=== PATIENT | female | born 1960 | race American Indian/Alaskan Native ===

== ENCOUNTER 2019-05-30 11:53 | Emergency (ER) | payer SELFPAY ==
--- NOTE | 2019-05-30 14:37 | Event Note ---
Date of service: 05/30/19 Face to Face: This is a 58-year-old female, sent to the ER by her primary care doctor for evaluation of essentially asymptomatic elevated blood pressure. The patient has no physical pain at this time. She specifically denies shortness of breath leg weakness and numbness. She endorses intermittent sensation of head spinning for months. This is painless. It is not acutely worsened today. She denies tinnitus, denies change in auditory acuity. She denies headache, neck pain, loss of vision, back pain, abdominal pain, extremity weakness, numbness. She denies DVT and pulmonary embolism risk factors. She reports her outpatient primary care doctor recently called in outpatient antihypertensive medications. She also endorses that her primary care doctor performed outpatient laboratory studies. On her exam, GCS of 15, NIH score of 0, walks with a steady gait, there is no past pointing, there is normal [id number], and there is negative pronator drift. EKG suggests left ventricular hypertrophy, otherwise unremarkable. Please reference the [employer] clinical policy on hypertension which is not acutely symptomatic or decompensated. The patient had declined blood work in the ER, which is a reasonable decision to make. We discussed weight loss, diet and lifestyle modification. The patient does not appear to have an emergent medical condition at this time, does not require further emergent diagnostics at this time. Vital Signs 05/30/19 05/30/19 05/30/19 12:15 12:30 12:36 Temperature 98.4 F Pulse Rate 86 84 Respiratory 21 20 Rate Blood Pressure 174/94 177/89 O2 Sat by Pulse 98 96 98 Oximetry 05/30/19 05/30/19 05/30/19 12:41 12:45 13:00 Temperature 98.4 F Pulse Rate 88 85 Respiratory 20 15 22 Rate Blood Pressure 167/96 174/93 O2 Sat by Pulse 98 96 94 Oximetry 05/30/19 05/30/19 05/30/19 13:15 13:30 13:49 Temperature Pulse Rate 79 85 77 Respiratory 20 21 26 H Rate Blood Pressure 166/85 180/86 166/85 O2 Sat by Pulse 96 94 98 Oximetry 05/30/19 05/30/19 05/30/19 14:00 14:15 15:21 Temperature Pulse Rate 84 77 Respiratory 24 19 Rate Blood Pressure 187/89 173/84 175/87 O2 Sat by Pulse 97 96 Oximetry Labs 05/30/19 Unknown Urine Bilirubin Neg Urine RBC (Auto) < 1.0 U Epithel Cells (Auto) < 1.0
--- NOTE | 2019-05-30 15:19 | Emergency Department Report ---
ED General Adult HPI - General Chief complaint: High BP Stated complaint: HTN Time Seen by Provider: 05/30/19 13:14 Source: EMS Mode of arrival: Stretcher Limitations: No Limitations - History of Present Illness Initial comments: 58 y/o AAF with past medical history of hypertension which was initially treated with diltiazem, lisinopril and hydralazine presented to emergency department complaining of dizziness and the tingling sensation. She was found to have a blood pressure 200 J level C at her physician's office today for pain and advised her to come to the emergency department for further evaluation and treatment options. She admits to noncompliance to her prescribed medication regimen that she was trying to natural intake various to correct her blood pressure she reports having the same sensations over the last 1-2 months which she tried to ignore thinking it would improve if she continue with the appropriate treatment arrival the symptoms became unbearable today so she went to see her primary care provider. Since her blood pressure improved after clonidine currently she is asymptomatic visit she was advised to come here for a checkup Severity scale (0 -10): 0 Improves with: none Worsens with: none Associated Symptoms: denies: denies other symptoms, chest pain, cough, fever/chills, loss of appetite, malaise, nausea/vomiting, rash, shortness of breath, syncope Treatments Prior to Arrival: none - Related Data Allergies Allergy/AdvReac Type Severity Reaction Status Date / Time No Known Allergies Allergy Unverified 05/30/19 12:36 ED Review of Systems ROS: Stated complaint: HTN Other details as noted in HPI Comment: All other systems reviewed and negative ED Past Medical Hx - Past Medical History Hx Hypertension: Yes - Social History Smoking Status: Never Smoker Substance Use Type: Alcohol ED Physical Exam - General Limitations: No Limitations General appearance: alert, in no apparent distress - Head Head exam: Present: atraumatic, normocephalic - Eye Eye exam: Present: normal appearance - ENT ENT exam: Present: mucous membranes moist - Neck Neck exam: Present: normal inspection - Respiratory Respiratory exam: Present: normal lung sounds bilaterally. Absent: respiratory distress - Cardiovascular Cardiovascular Exam: Present: regular rate, normal rhythm. Absent: systolic murmur, diastolic murmur, rubs, gallop - GI/Abdominal GI/Abdominal exam: Present: soft, normal bowel sounds - Extremities Exam Extremities exam: Present: normal inspection - Back Exam Back exam: Present: normal inspection, full ROM. Absent: CVA tenderness (R), CVA tenderness (L) - Neurological Exam Neurological exam: Present: alert, oriented X3, CN II-XII intact, normal gait. Absent: motor sensory deficit - Psychiatric Psychiatric exam: Present: normal affect, normal mood - Skin Skin exam: Present: warm, dry, intact, normal color. Absent: rash ED Course Vital Signs 05/30/19 05/30/19 12:36 12:41 Temperature 98.4 F 98.4 F Pulse Rate 84 Respiratory 20 20 Rate Blood Pressure 177/89 O2 Sat by Pulse 98 98 Oximetry ED Medical Decision Making - EKG Data EKG shows normal: sinus rhythm Rate: normal - EKG Data Interpretation: normal EKG - Medical Decision Making 58-year-old -[place]og[place] female with a known history of diabetes, hypertension, asthma uncompliant with a blood pressure medication presents to the ED with hypertension stage III which responded to clonidine tablet was given by her primary care provided. EKG is normal she has no neurological deficits is that she calls her baseline. She's had hypertension for several years. Last x- rays were were not obtained per [facility] hypertension policy guidelines. She is alert and oriented x 3, speaks in full sentences no acute acute distress and is at baseline Critical care attestation.: If time is entered above; I have spent that time in minutes in the direct care of this critically ill patient, excluding procedure time. ED Disposition Clinical Impression: HTN (hypertension) Disposition: DC-01 TO HOME OR SELFCARE Is pt being admited?: No Does the pt Need Aspirin: No Condition: Stable Instructions: Hypertension (ED), Chronic Hypertension (ED), DASH Eating Plan (ED) Additional Instructions: Be sure to go to the pharmacy and brick picker her diltiazem, hydralazine, lisinopril. Referrals: PRIMARY CARE, [Referring] - 2-3 Days (Please f/u with you PCP for further evaluation and [place] options. )
[2019-05-30 15:29] LABS: Bilirubin,Urine NEG (Negative); Blood,Urine NEG (Negative); Color,Urine Colorless (Yellow); RBC,Urine < 1.0 /HPF (0.0-6.0); Urobilinogen,Urine < 2.0 mg/dL (<2.0); WBC,Urine < 1.0 /HPF (0.0-6.0)
[2019-05-30 15:35] VITALS: BP 175/87
== END 2019-05-30 16:00 | disposition home or self-care (01) ==
LOC: ED 11:53
DX: I10 Essential (primary) hypertension (principal); E11.9 Type 2 diabetes mellitus without complications
CPT/HCPCS: 81001; 93005; 93010

== ENCOUNTER 2021-01-26 17:54 | Inpatient (IN) | payer OTHER ==
--- NOTE | 2021-01-26 19:40 | Event Note ---
ED Screening Note Date of service: 01/26/21 Time: 19:38 ED Screening Note: 60-year-old female presents to the ER today with complaints of diabetic symptoms. Patient states that for the past couple weeks she has been having increased thirst, urinary frequency and decreased appetite. And also recently started noticing some dysuria and cloudiness to the urine. She states that she went to an urgent care today and they checked her sugar and it was greater than 500 and recommended she come to the ER. Patient denies past medical history of diabetes. She reports some mild dizziness but otherwise denies any chest pain, shortness of breath, abdominal pain, nausea or vomiting. Fingerstick blood sugar here was greater than 600. Discussed that this pt is new onset DM, DKA r/o with Nurse Dinora @1935 at that she needs room as soon as possible. This initial assessment/diagnostic orders/clinical plan/treatment(s) is/are subject to change based on patients health status, clinical progression and re- assessment by fellow clinical providers in the ED. Further treatment and workup at subsequent clinical providers discretion. Patient/guardian urged not to elope from the ED as their condition may be serious if not clinically assessed and managed. Initial orders include: Labs
[2021-01-26 19:56] LABS: Hemoglobin 15.8 gm/dl (10.1-14.3); Mean Corpuscular HGB Conc 34 % (30-34); Mean Corpuscular Volume 95 fl (79-97); Platelet Count 285 K/mm3 (140-440); Red Blood Count 4.95 M/mm3 (3.65-5.03); Red Cell Distribution Width 13.3 % (13.2-15.2)
[2021-01-26 20:12] LABS: Albumin 4.4 g/dL (3.9-5); Calcium 10.6 mg/dL (8.4-10.2)
[2021-01-26 20:41] LABS: Band Neutrophils # (Manual) 0.1 K/mm3; Total Cells Counted 100
[2021-01-26 20:42] LABS: Large Platelets Few; Platelet Estimate Consistent w Auto; RBC Morphology Normal; Toxic Granulation 1+
[2021-01-26] MEDS ORDERED: SODIUM CHLORIDE 0.9% 1000 ML 1,000 ML IV ONE ×3 (21:15→21:16)
--- NOTE | 2021-01-26 21:20 | Emergency Department Report ---
ED General Adult HPI - General Chief complaint: Hyperglycemia Stated complaint: HIGH BLOOD SUGAR Time Seen by Provider: 01/26/21 21:05 Source: patient Mode of arrival: Ambulatory Limitations: No Limitations - History of Present Illness Initial comments: 60-year-old female, history of hypertension, presents to ED with elevated glucose. Patient reports 1 month history of excessive thirst and urination. Patient was seen at an urgent care today and told that her glucose was high, so she came to the ED. Patient denies any recent illness, fever, abdominal pain, vomiting or diarrhea. Patient states she has been drinking lots of Pedialyte due to her excessive thirst. Patient reports she has been fully vaccinated against COVID-19. Patient reports she has a PCP, however she has not seen them since prior to the pandemic. -: month(s) (1) Quality: other (Painless) Consistency: constant Improves with: none Worsens with: none Associated Symptoms: denies: chest pain, cough, nausea/vomiting, shortness of breath - Related Data Home Medications Medication Instructions Recorded Confirmed Last Taken Lisinopril/Hydrochlorothiazide 12.5 mg PO DAILY 01/27/21 01/27/21 01/26/21 [Zestoretic 10-12.5 mg Tablet] Allergies Allergy/AdvReac Type Severity Reaction Status Date / Time No Known Allergies Allergy Unverified 05/30/19 12:36 ED Review of Systems ROS: Stated complaint: HIGH BLOOD SUGAR Other details as noted in HPI Comment: All other systems reviewed and negative Constitutional: denies: chills, fever Respiratory: denies: cough, shortness of breath Cardiovascular: denies: chest pain Endocrine: increased thirst, increased urine, unexplained weight loss Gastrointestinal: denies: abdominal pain, nausea, vomiting, diarrhea ED Past Medical Hx - Past Medical History Previous Medical History?: Yes Hx Hypertension: Yes - Social History Smoking Status: Never Smoker Substance Use Type: Alcohol - Medications Home Medications: Home Medications Medication Instructions Recorded Confirmed Last Taken Type Lisinopril/Hydrochlorothiazide 12.5 mg PO DAILY 01/27/21 01/27/21 01/26/21 History [Zestoretic 10-12.5 mg Tablet] ED Physical Exam - General Limitations: No Limitations General appearance: alert, in no apparent distress - Head Head exam: Present: atraumatic, normocephalic - Eye Eye exam: Present: normal appearance, EOMI - ENT ENT exam: Present: mucous membranes moist - Neck Neck exam: Present: normal inspection - Respiratory Respiratory exam: Present: normal lung sounds bilaterally. Absent: respiratory distress - Cardiovascular Cardiovascular Exam: Present: regular rate, normal rhythm - GI/Abdominal GI/Abdominal exam: Present: soft. Absent: distended, tenderness - Extremities Exam Extremities exam: Present: normal inspection - Neurological Exam Neurological exam: Present: alert, oriented X3, CN II-XII intact. Absent: motor sensory deficit - Psychiatric Psychiatric exam: Present: normal affect, normal mood - Skin Skin exam: Present: warm, dry, intact, normal color ED Course Vital Signs 01/26/21 01/26/21 01/26/21 18:12 20:46 21:00 Temperature 98.1 F Pulse Rate 104 H 96 H 88 Pulse Rate [ From Monitor] Respiratory 12 Rate Blood Pressure 174/85 167/73 167/73 O2 Sat by Pulse 100 100 100 Oximetry 01/26/21 01/26/21 01/26/21 21:16 21:30 21:46 Temperature Pulse Rate 96 H 90 91 H Pulse Rate [ From Monitor] Respiratory Rate Blood Pressure 170/88 123/59 130/58 O2 Sat by Pulse 100 100 99 Oximetry 01/26/21 01/26/21 01/26/21 22:00 22:16 22:30 Temperature Pulse Rate 91 H 87 82 Pulse Rate [ From Monitor] Respiratory Rate Blood Pressure 170/88 150/55 120/59 O2 Sat by Pulse 100 100 100 Oximetry 01/26/21 01/26/21 01/26/21 22:46 23:00 23:15 Temperature 98.3 F Pulse Rate 80 80 Pulse Rate [ From Monitor] Respiratory Rate Blood Pressure 138/61 135/59 O2 Sat by Pulse 99 99 Oximetry 01/26/21 01/26/21 01/26/21 23:16 23:46 23:56 Temperature Pulse Rate 87 79 82 Pulse Rate [ From Monitor] Respiratory Rate Blood Pressure 143/64 121/48 120/54 O2 Sat by Pulse 99 99 100 Oximetry 01/27/21 00:00 Temperature Pulse Rate 83 Pulse Rate [ 83 From Monitor] Respiratory 19 Rate Blood Pressure 121/48 O2 Sat by Pulse 100 Oximetry ED Medical Decision Making - Lab Data Result diagrams: 01/26/21 19:37 01/27/21 00:18 - Medical Decision Making 60-year-old female with new onset diabetes and DKA. Glucose is 135, sodium 119, bicarb is 15 with anion gap of 38. IV fluids and insulin drip ordered. Patient will be admitted to hospitalist, Dr. Kuo, for further management. - Differential Diagnosis Hyperglycemia, DKA Critical Care Time: Yes Critical care time in (mins) excluding proc time.: 35 Critical care attestation.: If time is entered above; I have spent that time in minutes in the direct care of this critically ill patient, excluding procedure time. Critical Care Time: 35 min ED Disposition Clinical Impression: Diabetic ketoacidosis Disposition: OP ADMIT IP TO THIS HOSP Is pt being admited?: Yes Condition: Stable Time of Disposition: 21:20
[2021-01-26 21:56] LABS: Calcium 10.1 mg/dL (8.4-10.2)
[2021-01-26] MEDS ORDERED: INSULIN REGULAR, HUMAN 100 UNITS in SODIUM CHLORIDE 0.9% 99 ML IV SCH ×2 (22:00→23:00)
[2021-01-26] MEDS ORDERED: DEXTROSE 50% IN WATER (25GM) 50 ML SYRINGE IV PRN (22:22)
[2021-01-26 22:31] LABS: Bacteria,Urine 1+ /HPF (Negative); Bilirubin,Urine NEG (Negative); Blood,Urine LG (Negative); Color,Urine Yellow (Yellow); Mucus,Urine FEW /HPF; Urobilinogen,Urine < 2.0 mg/dL (<2.0)
--- NOTE | 2021-01-26 22:31 | History and Physical Report ---
History of Present Illness Date of examination: 01/26/21 Date of admission: 01/26/21 21:53 Chief complaint: Elevated blood Glucose History of present illness: 60-year-old -[place] female with known history of hypertension presenting to the emergency room today for evaluation of elevated blood glucose. Patient states she has been having excessive thirst and also excessive urination lately and therefore decided to be evaluated at an urgent care facility. Blood sugar was said to be quite high and therefore referred to the emergency room for further evaluation. Patient admits that she has been drinking a lot of soda and other fluids which contains sugar. She denies any fever or chills, no chest pain or shortness of breath, no nausea or vomiting, no abdominal pain, no hematuria or dysuria. She has a primary care physician but that she has not followed up lately due to the pandemic. Work-up in the emergency room today reveals elevated blood glucose in the 700s and elevated anion gap. Patient was found to be in DKA. She has been admitted for new onset diabetes mellitus and DKA. Patient subsequently started on insulin drip and admitted to the intensive care unit. Past History Past Medical History: hypertension Past Surgical History: No surgical history Social history: alcohol abuse (Drinks alcohol occasionally) Family history: diabetes (In aunts) Medications and Allergies Allergies Allergy/AdvReac Type Severity Reaction Status Date / Time No Known Allergies Allergy Unverified 05/30/19 12:36 Active Meds: Active Medications Dextrose (Dextrose 50% In Water (25gm) 50 Ml Syringe) 0 ml IV Q30MIN PRN; Protocol PRN Reason: Hypoglycemia Heparin Sodium (Porcine) (Heparin 5,000 Unit/1 Ml Vial) 5,000 unit SUB-Q Q8HR NELLIE Insulin Human Regular 100 (units/ Sodium Chloride) 100 mls @ 1 mls/hr IV TITR NELLIE; Protocol Last Admin: 01/26/21 22:16 Dose: 8 units/hr, 8 mls/hr Documented by: Potassium Chloride/Dextrose/Sod Cl (D5w/0.45% Nacl/Kcl 20 Meq) 20 meq in 1,000 mls @ 125 mls/hr IV DIRECT NELLIE Insulin Human Regular 100 (units/ Sodium Chloride) 100 mls @ 1 mls/hr IV TITR NELLIE; Protocol Sodium Chloride (Sodium Chloride 0.9% 10 Ml Flush Syringe) 10 ml IV BID NELLIE Sodium Chloride (Sodium Chloride 0.9% 10 Ml Flush Syringe) 10 ml IV PRN PRN PRN Reason: LINE FLUSH Review of Systems Constitutional: no fever, no chills Ears, nose, mouth and throat: no nasal congestion, no sore throat Cardiovascular: no chest pain, no palpitations Respiratory: no cough, no shortness of breath Gastrointestinal: no abdominal pain, no nausea, no vomiting, no diarrhea Genitourinary Female: no flank pain, no dysuria, no hematuria Musculoskeletal: no neck pain, no low back pain Integumentary: no rash, no pruritis Neurological: no headaches, no confusion Psychiatric: no anxiety, no depression Endocrine: excessive thirst, polydipsia, polyuria, no polyphagia, no nocturia Exam - Constitutional Vitals: Temp Pulse Resp BP Pulse Ox 98.1 F 96 H 12 170/88 100 01/26/21 18:12 01/26/21 21:16 01/26/21 18:12 01/26/21 21:16 01/26/21 21:16 General appearance: Present: no acute distress, well-nourished - EENT Eyes: Present: PERRL, EOM intact. Absent: scleral icterus ENT: hearing intact, clear oral mucosa, dentition normal - Neck Neck: Present: supple, normal ROM - Respiratory Respiratory effort: normal Respiratory: bilateral: CTA - Cardiovascular Rhythm: regular Heart Sounds: Present: S1 & S2. Absent: gallop, systolic murmur, diastolic murmur, rub, click - Extremities Extremities: no ischemia, pulses intact, No edema, normal temperature, Full ROM Peripheral Pulses: within normal limits - Abdominal General gastrointestinal: Present: soft, non-tender, non-distended, normal bowel sounds. Absent: mass - Integumentary Integumentary: Present: clear, warm, dry, normal turgor. Absent: rash - Musculoskeletal Musculoskeletal: strength equal bilaterally - Psychiatric Psychiatric: appropriate mood/affect, intact judgment & insight, memory intact, cooperative - Neurologic Neurologic: CNII-XII intact, no focal deficits, moves all extremities Results - Labs CBC & Chem 7: 01/26/21 19:37 01/26/21 21:22 Labs: Abnormal lab results 01/26/21 01/26/21 01/26/21 Range/Units 18:12 19:37 19:37 Hgb 15.8 H (10.1-14.3) gm/dl Hct 47.0 H (30.3-42.9) % Lymphocytes % (Manual) 37.0 H (13.4-35.0) % Monocytes % (Manual) 15.0 H (0.0-7.3) % Monocytes # (Manual) 1.1 H (0.0-0.8) K/mm3 Sodium 119 L* (137-145) mmol/L Potassium (3.6-5.0) mmol/L Chloride 71.1 L (98-107) mmol/L Carbon Dioxide 15 L (22-30) mmol/L BUN 25 H (7-17) mg/dL Creatinine 1.4 H (0.6-1.2) mg/dL Glucose 735 H* (65-100) mg/dL POC Glucose > 600 H (70-105) mg/dL Calcium 10.6 H (8.4-10.2) mg/dL Phosphorus (2.5-4.5) mg/dL Total Protein 8.3 H (6.3-8.2) g/dL 01/26/21 Range/Units 21:22 Hgb (10.1-14.3) gm/dl Hct (30.3-42.9) % Lymphocytes % (Manual) (13.4-35.0) % Monocytes % (Manual) (0.0-7.3) % Monocytes # (Manual) (0.0-0.8) K/mm3 Sodium 120 L (137-145) mmol/L Potassium 5.1 H (3.6-5.0) mmol/L Chloride 72.8 L (98-107) mmol/L Carbon Dioxide 14 L (22-30) mmol/L BUN 24 H (7-17) mg/dL Creatinine 1.4 H (0.6-1.2) mg/dL Glucose 748 H* (65-100) mg/dL POC Glucose (70-105) mg/dL Calcium (8.4-10.2) mg/dL Phosphorus 4.90 H (2.5-4.5) mg/dL Total Protein (6.3-8.2) g/dL Assessment and Plan - Patient Problems (1) Diabetic ketoacidosis Current Visit: Yes Status: Acute Plan to address problem: Patient placed on insulin drip and IV fluid Will monitor blood glucose closely. Will check hemoglobin A1c and schedule diabeteic education. Consult placed to intesivist. (2) DVT prophylaxis Current Visit: Yes Status: Acute Plan to address problem: Will place for subqutaneous heparin (3) Full code status Current Visit: Yes Status: Acute Plan to address problem: Full Code.
[2021-01-26 22:36] LABS: WBC,Urine > 182.0 /HPF (0.0-6.0)
[2021-01-27] MEDS: SODIUM CHLORIDE 0.9% 1000 ML 1,000 ML IV SCH
[2021-01-27 01:40] LABS: Calcium 9.4 mg/dL (8.4-10.2)
[2021-01-27] MEDS: D5W/0.45% NACL/KCL 20 MEQ 20 MEQ/1,000 ML BAG IV SCH ×2 (03:51→13:24)
[2021-01-27] MEDS: HEPARIN 5,000 UNIT/1 ML VIAL SUB-Q SCH ×3 (05:13→22:11)
[2021-01-27 06:07] LABS: BUN/Creatinine Ratio 19; Blood Urea Nitrogen 19 mg/dL (7-17); Calcium 9.8 mg/dL (8.4-10.2); Hemolysis Index 9
--- NOTE | 2021-01-27 08:42 | Progress Note ---
Assessment and Plan DKA -Patient was admitted to ICU with DKA protocol -Placed on insulin drip and monitor blood glucose every hour -We will insulin drip as anion gap is closed -we will place on consistent carb diet, sliding scale insulin and long-acting in sulin -will adjust insulin dose as needed for better blood glycemic control hyponatremia, due to hyperglycemia, improved continue IV fluid Hyperkalemia, resolved, Hypokalemia, replete as needed ADAMS due to vasomotor nephropathy -Resolved with IV fluid diabetes mellitus type 2 uncontrolled, need to consult -A1c 17.0, provide diabetic education, SSI long-acting insulin and consistent carb diet UTI, POA -Placed on IV fluid and antibiotics -Follow culture DVT prophylaxis, Lovenox Brief history: 60-year-old -[place] female with known history of hypertension presented to the emergency room for evaluation of elevated blood glucose, excessive thirst and also excessive urination lately. Work-up in the emergency room revealed UTI, elevated blood glucose in the 700s and elevated anion gap. Patient subsequently started on insulin drip [facility] onset diabetes mellitus, UTI and DKA.. 01/27/21; continue IV fluid, IV antibiotics. Stop insulin drip transition to subcu insulin. A1c 17.0. Start on consistent carb diet. Transfer to telemetry. Discussed plan of care at the bedside with patient and with her . Subjective Date of service: 01/27/21 Interval history: Patient seen and examined. Medical records and medication list reviewed. No acute event overnight noted by the RN. Patient denies any chest pain or difficulty breathing. Blood glucose improved, patient wants to eat Denies any nausea and vomiting Discussed plan of care at bedside with patient. Objective - Exam Narrative Exam: GENERAL: well-developed and well-nourished female lying on bed appeared to be in no discomfort. HEENT: Normocephalic. Atraumatic. No conjunctival congestion or icterus. Pa tient has moist mucous membranes. NECK: Supple. Trachea midline. CHEST/LUNGS: Clear to auscultated bilaterally, breathing nonlabored. No wheezes crackles or rhonchi. HEART/CARDIOVASCULAR: Regular in rate and rhythm. S1 and S2 positive. ABDOMEN: Abdomen is soft, nontender. Patient has normal bowel sounds. SKIN: There is no rash. Warm and dry. NEURO: No focal motor deficit. Follows command. MUSCULOSKELETAL: No joint effusion or tenderness. EXTRIMITY: No edema, no cyanosis or clubbing. PSYCH: Cooperative. - Constitutional Vitals: Vital Signs - 12hr 01/26/21 01/26/21 01/26/21 20:46 21:00 21:16 Temperature Pulse Rate 96 H 88 96 H Pulse Rate [ From Monitor] Respiratory Rate Blood Pressure 167/73 167/73 170/88 O2 Sat by Pulse 100 100 100 Oximetry 01/26/21 01/26/21 01/26/21 21:30 21:46 22:00 Temperature Pulse Rate 90 91 H 91 H Pulse Rate [ From Monitor] Respiratory Rate Blood Pressure 123/59 130/58 170/88 O2 Sat by Pulse 100 99 100 Oximetry 01/26/21 01/26/21 01/26/21 22:16 22:30 22:46 Temperature Pulse Rate 87 82 80 Pulse Rate [ From Monitor] Respiratory Rate Blood Pressure 150/55 120/59 138/61 O2 Sat by Pulse 100 100 99 Oximetry 01/26/21 01/26/21 01/26/21 23:00 23:15 23:16 Temperature 98.3 F Pulse Rate 80 87 Pulse Rate [ From Monitor] Respiratory Rate Blood Pressure 135/59 143/64 O2 Sat by Pulse 99 99 Oximetry 01/26/21 01/26/21 01/27/21 23:46 23:56 00:00 Temperature Pulse Rate 79 82 83 Pulse Rate [ 83 From Monitor] Respiratory 19 Rate Blood Pressure 121/48 120/54 121/48 O2 Sat by Pulse 99 100 100 Oximetry 01/27/21 01/27/21 01/27/21 02:01 02:10 02:24 Temperature Pulse Rate 79 81 143 H Pulse Rate [ From Monitor] Respiratory 17 18 Rate Blood Pressure 109/47 109/47 120/54 O2 Sat by Pulse 99 99 Oximetry 01/27/21 01/27/21 01/27/21 02:30 02:40 02:50 Temperature Pulse Rate 80 83 85 Pulse Rate [ From Monitor] Respiratory 10 L 17 21 Rate Blood Pressure 109/47 109/47 O2 Sat by Pulse 98 98 98 Oximetry 01/27/21 01/27/21 01/27/21 03:00 03:10 03:20 Temperature Pulse Rate 86 82 82 Pulse Rate [ From Monitor] Respiratory 16 15 10 L Rate Blood Pressure 117/56 117/56 117/56 O2 Sat by Pulse 97 98 96 Oximetry 01/27/21 01/27/21 01/27/21 03:30 03:40 03:50 Temperature Pulse Rate 78 82 80 Pulse Rate [ From Monitor] Respiratory 20 16 16 Rate Blood Pressure 117/56 117/56 117/56 O2 Sat by Pulse 97 97 98 Oximetry 01/27/21 01/27/21 01/27/21 04:00 04:10 04:20 Temperature 98.5 F Pulse Rate 83 85 85 Pulse Rate [ 83 From Monitor] Respiratory 18 20 12 Rate Blood Pressure 112/62 112/62 112/62 O2 Sat by Pulse 97 97 99 Oximetry 01/27/21 01/27/21 01/27/21 04:30 04:40 04:50 Temperature Pulse Rate 79 78 80 Pulse Rate [ From Monitor] Respiratory 20 17 15 Rate Blood Pressure 112/62 112/62 112/62 O2 Sat by Pulse 97 97 99 Oximetry 01/27/21 01/27/21 01/27/21 05:00 05:10 05:20 Temperature Pulse Rate 74 75 77 Pulse Rate [ From Monitor] Respiratory 17 18 15 Rate Blood Pressure 118/50 118/50 118/50 O2 Sat by Pulse 96 97 98 Oximetry 01/27/21 01/27/21 01/27/21 05:30 05:40 05:50 Temperature Pulse Rate 73 76 78 Pulse Rate [ From Monitor] Respiratory 17 17 14 Rate Blood Pressure 118/50 118/50 118/50 O2 Sat by Pulse 97 97 100 Oximetry 01/27/21 01/27/21 01/27/21 06:00 06:10 06:20 Temperature Pulse Rate 74 75 75 Pulse Rate [ From Monitor] Respiratory 15 16 17 Rate Blood Pressure 126/55 126/55 126/55 O2 Sat by Pulse 95 97 96 Oximetry 01/27/21 01/27/21 06:30 07:09 Temperature 98.0 F Pulse Rate 84 Pulse Rate [ From Monitor] Respiratory 14 Rate Blood Pressure 126/55 O2 Sat by Pulse 97 Oximetry - Labs CBC & Chem 7: 01/26/21 19:37 01/28/21 04:33 Labs: Abnormal lab results 01/26/21 01/26/21 01/26/21 Range/Units 18:12 19:37 19:37 Hgb 15.8 H (10.1-14.3) gm/dl Hct 47.0 H (30.3-42.9) % Lymphocytes % (Manual) 37.0 H (13.4-35.0) % Monocytes % (Manual) 15.0 H (0.0-7.3) % Monocytes # (Manual) 1.1 H (0.0-0.8) K/mm3 Sodium 119 L* (137-145) mmol/L Potassium (3.6-5.0) mmol/L Chloride 71.1 L (98-107) mmol/L Carbon Dioxide 15 L (22-30) mmol/L BUN 25 H (7-17) mg/dL Creatinine 1.4 H (0.6-1.2) mg/dL Glucose 735 H* (65-100) mg/dL POC Glucose > 600 H (70-105) mg/dL Hemoglobin A1c (4-6) % Calcium 10.6 H (8.4-10.2) mg/dL Phosphorus (2.5-4.5) mg/dL Total Protein 8.3 H (6.3-8.2) g/dL Urine WBC (Auto) (0.0-6.0) /HPF 01/26/21 01/26/21 01/26/21 Range/Units 21:22 21:49 23:32 Hgb (10.1-14.3) gm/dl Hct (30.3-42.9) % Lymphocytes % (Manual) (13.4-35.0) % Monocytes % (Manual) (0.0-7.3) % Monocytes # (Manual) (0.0-0.8) K/mm3 Sodium 120 L (137-145) mmol/L Potassium 5.1 H (3.6-5.0) mmol/L Chloride 72.8 L (98-107) mmol/L Carbon Dioxide 14 L (22-30) mmol/L BUN 24 H (7-17) mg/dL Creatinine 1.4 H (0.6-1.2) mg/dL Glucose 748 H* (65-100) mg/dL POC Glucose 585 H (70-105) mg/dL Hemoglobin A1c 17.0 H (4-6) % Calcium (8.4-10.2) mg/dL Phosphorus 4.90 H (2.5-4.5) mg/dL Total Protein (6.3-8.2) g/dL Urine WBC (Auto) (0.0-6.0) /HPF 01/26/21 01/27/21 01/27/21 Range/Units Unknown 00:18 03:40 Hgb (10.1-14.3) gm/dl Hct (30.3-42.9) % Lymphocytes % (Manual) (13.4-35.0) % Monocytes % (Manual) (0.0-7.3) % Monocytes # (Manual) (0.0-0.8) K/mm3 Sodium 130 L D (137-145) mmol/L Potassium (3.6-5.0) mmol/L Chloride 85.9 L (98-107) mmol/L Carbon Dioxide 21 L D (22-30) mmol/L BUN 21 H (7-17) mg/dL Creatinine (0.6-1.2) mg/dL Glucose 452 H (65-100) mg/dL POC Glucose 161 H (70-105) mg/dL Hemoglobin A1c (4-6) % Calcium (8.4-10.2) mg/dL Phosphorus (2.5-4.5) mg/dL Total Protein (6.3-8.2) g/dL Urine WBC (Auto) > 182.0 H (0.0-6.0) /HPF 01/27/21 01/27/21 01/27/21 Range/Units 04:50 04:57 05:49 Hgb (10.1-14.3) gm/dl Hct (30.3-42.9) % Lymphocytes % (Manual) (13.4-35.0) % Monocytes % (Manual) (0.0-7.3) % Monocytes # (Manual) (0.0-0.8) K/mm3 Sodium 135 L (137-145) mmol/L Potassium 3.2 L (3.6-5.0) mmol/L Chloride 93.0 L (98-107) mmol/L Carbon Dioxide (22-30) mmol/L BUN 19 H (7-17) mg/dL Creatinine (0.6-1.2) mg/dL Glucose 135 H (65-100) mg/dL POC Glucose 150 H 163 H (70-105) mg/dL Hemoglobin A1c (4-6) % Calcium (8.4-10.2) mg/dL Phosphorus (2.5-4.5) mg/dL Total Protein (6.3-8.2) g/dL Urine WBC (Auto) (0.0-6.0) /HPF 01/27/21 01/27/21 Range/Units 06:58 07:39 Hgb (10.1-14.3) gm/dl Hct (30.3-42.9) % Lymphocytes % (Manual) (13.4-35.0) % Monocytes % (Manual) (0.0-7.3) % Monocytes # (Manual) (0.0-0.8) K/mm3 Sodium (137-145) mmol/L Potassium (3.6-5.0) mmol/L Chloride (98-107) mmol/L Carbon Dioxide (22-30) mmol/L BUN (7-17) mg/dL Creatinine (0.6-1.2) mg/dL Glucose (65-100) mg/dL POC Glucose 224 H 188 H (70-105) mg/dL Hemoglobin A1c (4-6) % Calcium (8.4-10.2) mg/dL Phosphorus (2.5-4.5) mg/dL Total Protein (6.3-8.2) g/dL Urine WBC (Auto) (0.0-6.0) /HPF
[2021-01-27] MEDS ORDERED: cefTRIAXone/NS 1 GM/50 ML 1 GM/50 ML BAG IV SCH (09:00)
--- NOTE | 2021-01-27 11:29 | Consultation ---
History of Present Illness Consult date: 01/27/21 Requesting physician: JUDE JOHNSON Reason for consult: other (DKA) History of present illness: PULMONARY/CCM CONSULT NOTE (Full dictation # [id number]) Please see dictated notes for full details Past History Past Medical History: hypertension Past Surgical History: No surgical history Social history: alcohol abuse (Drinks alcohol occasionally) Family history: diabetes (In aunts) Medications and Allergies Allergies Allergy/AdvReac Type Severity Reaction Status Date / Time No Known Allergies Allergy Unverified 05/30/19 12:36 Home Medications Medication Instructions Recorded Confirmed Last Taken Type Lisinopril/Hydrochlorothiazide 12.5 mg PO DAILY 01/27/21 01/27/21 01/26/21 History [Zestoretic 10-12.5 mg Tablet] Active Meds: Active Medications Dextrose (Dextrose 50% In Water (25gm) 50 Ml Syringe) 0 ml IV Q30MIN PRN; Protocol PRN Reason: Hypoglycemia Heparin Sodium (Porcine) (Heparin 5,000 Unit/1 Ml Vial) 5,000 unit SUB-Q Q8HR NELLIE Last Admin: 01/27/21 05:13 Dose: 5,000 unit Documented by: Potassium Chloride/Dextrose/Sod Cl (D5w/0.45% Nacl/Kcl 20 Meq) 20 meq in 1,000 mls @ 125 mls/hr IV DIRECT NELLIE Last Admin: 01/27/21 03:51 Dose: 125 mls/hr Documented by: Insulin Human Regular 100 (units/ Sodium Chloride) 100 mls @ 1 mls/hr IV TITR NELLIE; Protocol Last Titration: 01/27/21 11:02 Dose: 3 units/hr, 3 mls/hr Documented by: Sodium Chloride (Nacl 0.9% 1000 Ml) 1,000 mls @ 150 mls/hr IV DIRECT NELLIE Last Infusion: 01/27/21 03:51 Dose: 0 mls/hr Documented by: Ceftriaxone Sodium (Rocephin/Ns 1 Gm/50 Ml) 1 gm in 50 mls @ 100 mls/hr IV Q12H NELLIE; Protocol Last Admin: 01/27/21 09:28 Dose: 100 mls/hr Documented by: Sodium Chloride (Sodium Chloride 0.9% 10 Ml Flush Syringe) 10 ml IV BID NELLIE Last Admin: 01/27/21 09:22 Dose: 10 ml Documented by: Sodium Chloride (Sodium Chloride 0.9% 10 Ml Flush Syringe) 10 ml IV PRN PRN PRN Reason: LINE FLUSH Physical Examination Vital signs: Vital Signs Temp Pulse Resp BP Pulse Ox 98.1 F 104 H 12 174/85 100 01/26/21 18:12 01/26/21 18:12 01/26/21 18:12 01/26/21 18:12 01/26/21 18:12 Results - Laboratory Findings CBC and BMP: 01/26/21 19:37 01/27/21 04:57 Abnormal lab findings: Abnormal Labs 01/26/21 01/26/21 01/26/21 18:12 19:37 19:37 Hgb 15.8 H Hct 47.0 H Lymphocytes % (Manual) 37.0 H Monocytes % (Manual) 15.0 H Monocytes # (Manual) 1.1 H Sodium 119 L* Potassium Chloride 71.1 L Carbon Dioxide 15 L BUN 25 H Creatinine 1.4 H Glucose 735 H* POC Glucose > 600 H Hemoglobin A1c Calcium 10.6 H Phosphorus Total Protein 8.3 H Urine WBC (Auto) 01/26/21 01/26/21 01/26/21 21:22 21:49 23:32 Hgb Hct Lymphocytes % (Manual) Monocytes % (Manual) Monocytes # (Manual) Sodium 120 L Potassium 5.1 H Chloride 72.8 L Carbon Dioxide 14 L BUN 24 H Creatinine 1.4 H Glucose 748 H* POC Glucose 585 H Hemoglobin A1c 17.0 H Calcium Phosphorus 4.90 H Total Protein Urine WBC (Auto) 01/26/21 01/27/21 01/27/21 Unknown 00:18 03:40 Hgb Hct Lymphocytes % (Manual) Monocytes % (Manual) Monocytes # (Manual) Sodium 130 L D Potassium Chloride 85.9 L Carbon Dioxide 21 L D BUN 21 H Creatinine Glucose 452 H POC Glucose 161 H Hemoglobin A1c Calcium Phosphorus Total Protein Urine WBC (Auto) > 182.0 H 01/27/21 01/27/21 01/27/21 04:50 04:57 05:49 Hgb Hct Lymphocytes % (Manual) Monocytes % (Manual) Monocytes # (Manual) Sodium 135 L Potassium 3.2 L Chloride 93.0 L Carbon Dioxide BUN 19 H Creatinine Glucose 135 H POC Glucose 150 H 163 H Hemoglobin A1c Calcium Phosphorus Total Protein Urine WBC (Auto) 01/27/21 01/27/21 01/27/21 06:58 07:39 09:08 Hgb Hct Lymphocytes % (Manual) Monocytes % (Manual) Monocytes # (Manual) Sodium Potassium Chloride Carbon Dioxide BUN Creatinine Glucose POC Glucose 224 H 188 H 193 H Hemoglobin A1c Calcium Phosphorus Total Protein Urine WBC (Auto) 01/27/21 10:08 Hgb Hct Lymphocytes % (Manual) Monocytes % (Manual) Monocytes # (Manual) Sodium Potassium Chloride Carbon Dioxide BUN Creatinine Glucose POC Glucose 167 H Hemoglobin A1c Calcium Phosphorus Total Protein Urine WBC (Auto)
[2021-01-27] MEDS ORDERED: POTASSIUM CHLORIDE ER 20 MEQ TAB PO ONE (13:00)
[2021-01-27] MEDS ORDERED: SODIUM CHLORIDE 0.9% 1000 ML 1,000 ML IV SCH (16:00)
[2021-01-27] MEDS: INSULIN NPH, HUMAN 100 UNIT/1 ML SUB-Q SCH (16:49)
[2021-01-27] MEDS: INSULIN REGULAR, HUMAN 100 UNITS/1 ML SUB-Q SCH ×2 (16:50→22:12)
[2021-01-27 17:03] LABS: Blood Urea Nitrogen 14 mg/dL (7-17); Calcium 9.6 mg/dL (8.4-10.2); Hemolysis Index 80
[2021-01-27 17:06] LABS: BUN/Creatinine Ratio 20
[2021-01-27] MEDS: FAMOTIDINE 20 MG TAB PO SCH (22:11)
[2021-01-27 22:55] LABS: BUN/Creatinine Ratio 14; Blood Urea Nitrogen 13 mg/dL (7-17); Calcium 9.3 mg/dL (8.4-10.2); Hemolysis Index 22
--- NOTE | 2021-01-28 02:05 | Consultation ---
DATE OF CONSULTATION: 01/27/2021 PULMONARY CRITICAL CARE CONSULT NOTE CONSULTING PHYSICIAN: Dr. Matthew Kuo. REASON FOR CONSULTATION: Diabetic ketoacidosis. CHIEF COMPLAINT AND HISTORY OF PRESENT ILLNESS: As follows: The patient is a now 60-year-old female with a past medical history significant mostly for hypertension and extensive family history of diabetes, but no history of personal diabetes, who came in complaining of 1 month off polydipsia, polyuria. She was seen at an urgent care at the day of presentation and told that her sugars were high. She denied any recent illness. She denied any open wounds or sores on her body. She denied any nausea, vomiting, diarrhea, or sick contacts. She did say that she had been doing a lot of drinking or Pedialyte. In the emergency room, she was evaluated. She is COVID vaccinated coincidentally. She was found to be in diabetic ketoacidosis, started on IV insulin drip, started on DKA protocol. An ICU admission was sought, requested and offered. When I stopped by to see her, she remained on IV insulin. I think she was going about 4 units per hour, feeling perhaps a little bit better. She denies any history of tobacco use or abuse whatsoever. This really is as much of the history of presentation as I have. PAST MEDICAL HISTORY: Hypertension. PAST SURGICAL HISTORY: Denies. MEDICATIONS: She was on at the time I stopped by to see her according to the medication administration record included the following: Rocephin 1 g IV daily, Pepcid 20 mg p.o. at bedtime, heparin 5000 units subQ q.8 hours. Insulin drip was going as I mentioned at 4 units per hour. ALLERGIES: No known drug allergies. DIET: Well built lady. Denies acute weight loss or gain in the preceding few weeks to months. FAMILY AND SOCIAL HISTORY: Lives in the community. Denies alcohol, tobacco or illicit drug use or abuse. She does have a history of diabetes, I believe she says her aunts and in the rest of the family. FAMILY HISTORY: Otherwise, noncontributory. REVIEW OF SYSTEMS: No loss of consciousness. No new onset seizures. No new onset focal weakness. Denies gross hematochezia or melena. Denies gross hematuria or dysuria. Denies hematemesis. Denies hemoptysis. Denies palpitations. Denies seizures. Denies heat or cold intolerance. Complete 13 system review of system was obtained. Pertinent positives and/or negatives as in body of history above, otherwise they are noncontributory. PHYSICAL EXAMINATION: VITAL SIGNS: At presentation, she was afebrile, temperature 98.1 degrees Fahrenheit with a pulse of 104, respiratory rate of 12, blood pressure 174/85, O2 sats 100%. Inspired oxygen concentration at that time was not recorded. When I stopped by to see her, her O2 sats were 98% and that was on room air. GENERAL: Middle-aged female. Normocephalic, atraumatic, resting in bed with normal respiratory effort at rest. HEAD, EYES, EARS, NOSE AND THROAT: Anicteric. No conjunctival erythema. Oropharynx was dry. Mallampati #2 oropharynx. NECK: No gross jugular venous distention, no thyromegaly. Grossly, there were no palpable lymph nodes in the supraclavicular or submandibular lymph node chains. LUNGS: Auscultation of both lung warner were unremarkable. Lungs were clear bilaterally with good bilateral air movement. HEART: Sounds 1 and 2 were heard. They were regular rate and rhythm at the time of my evaluation without overt rubs or murmurs. ABDOMEN: Soft, full, bowel sounds are positive, nontender, no palpable hepatosplenomegaly. EXTREMITIES: Without overt digital clubbing or cyanosis, no pedal edema. Pedal pulses are 2+ bilaterally. NEUROLOGIC: Pupils are equal, round, about 4 mm, reactive to light. Extraocular muscle movements were intact. She moves all 4 extremities spontaneously. SKIN: Normal turgor in the areas examined without overt cellulitis or rash. Please see the wound care nurses' notes for full description of her skin. PSYCHIATRIC: Mood was normal. Affect was appropriate. She had intact judgment and insight. LABORATORY DATA: From my review are as follows: Admission white cell count 7200, hemoglobin 15.8, hematocrit 47.0 and platelet count 285. No band forms on the manual differential. Serum sodium was 119 at presentation, potassium 4.7, chloride 71, bicarbonate 15, BUN 25, creatinine 1.4, glucose was 735, anion gap 38. Hemoglobin A1c has come back as 17.0. Liver function tests otherwise within normal limits. Urinalysis showed large leukocyte esterase and greater than 182 white cells per high power field. Her most recent gap is down to 19. No microbiology studies for my review. No radiologist studies. ASSESSMENT: 1. New onset diabetes. 2. Diabetic ketoacidosis. 3. History of hypertension. 4. Possible urinary tract infection. 5. Severe metabolic acidosis at presentation. 6. Pseudohyponatremia ____. 7. Acute kidney injury. PLAN: She is about to get another BMP. I do feel her gap should have closed and she will be transitioned of IV insulin. In the meantime, oxygen will be given as necessary to keep sats greater than or equal to 90%. Aspiration precautions will be maintained. I have tried to explain the pathophysiology of diabetes to her. She will get diabetic education. I have stressed the importance of maintaining her blood sugars and trying to work on bringing her A1c down. I told her to look for a number of about 7, preferably a little bit better. She should watch her symptoms at the same time. Continued tobacco abstinence has been advised. She is appropriately on GI prophylaxis and DVT prophylaxis. Flu and pneumonia vaccination will be addressed per protocol. Thank you very much for the consult. We will follow along and make further recommendations as picture progresses/becomes clearer. TID: [id number] RECEIPT: [id number] SREEDHAR/KARIS/YINA
[2021-01-28] MEDS: SODIUM CHLORIDE 0.9% 1000 ML 1,000 ML IV SCH (04:27)
[2021-01-28 05:55] LABS: BUN/Creatinine Ratio 13; Blood Urea Nitrogen 10 mg/dL (7-17); Calcium 8.8 mg/dL (8.4-10.2); Hemolysis Index 11
[2021-01-28] MEDS: HEPARIN 5,000 UNIT/1 ML VIAL SUB-Q SCH ×3 (06:23→21:20)
[2021-01-28] MEDS: INSULIN NPH, HUMAN 100 UNIT/1 ML SUB-Q SCH ×2 (08:19→17:45)
[2021-01-28] MEDS: INSULIN REGULAR, HUMAN 100 UNITS/1 ML SUB-Q SCH ×4 (08:19→21:19)
[2021-01-28] MEDS ORDERED: glipiZIDE 5 MG TAB PO SCH (09:55)
[2021-01-28] MEDS: cefTRIAXone/NS 1 GM/50 ML 1 GM/50 ML BAG IV SCH (10:35)
--- NOTE | 2021-01-28 14:55 | Progress Note ---
Assessment and Plan Patient alert, awake. Resting on room air. O2 saturation 100%. No complaint of chest pain, shortness of breath or cough. Patient admitted for DKA. Anion gap 17. Patient afebrile. No leukocytosis. Denies smoking. Patient says she drinks alcohol.Counseled to stop drinking alcohol. Denies drug abuse. Works in [employer] and has three children. No known drug allergies. - Patient Problems (1) Diabetic ketoacidosis Current Visit: Yes Status: Acute Plan to address problem: Impriving. Anion gap 17. Management as per primary care. Subjective Date of service: 01/28/21 Interval history: Patient alert, awake. Resting on room air. O2 saturation 100%. No complaint of chest pain, shortness of breath or cough. Patient admitted for DKA. Anion gap 17. Patient afebrile. No leukocytosis. Denies smoking. Patient says she drinks alcohol.Counseled stop drinking alcohol. Denies drug abuse. Works in [employer]. and has three children. No known drug allergies. Objective Vital Signs - 12hr 01/28/21 01/28/21 01/28/21 03:37 04:00 07:19 Temperature 99.0 F 98.0 F Pulse Rate 88 92 H 87 Respiratory 18 18 Rate Blood Pressure 139/65 145/66 O2 Sat by Pulse 99 100 Oximetry 01/28/21 01/28/21 08:46 12:09 Temperature Pulse Rate 92 H 92 H Respiratory Rate Blood Pressure O2 Sat by Pulse Oximetry Constitutional: no acute distress, alert Eyes: non-icteric ENT: oropharynx moist Neck: supple, no lymphadenopathy Effort: normal Ascultation: Bilateral: clear Cardiovascular: regular rate and rhythm Gastrointestinal: normoactive bowel sounds, soft Integumentary: normal Extremities: no cyanosis, no edema Neurologic: normal mental status, non-focal exam, pupils equal and round, CN II- XII normal Psychiatric: mood appropriate CBC and BMP: 01/26/21 19:37 01/28/21 04:33 Abnormal lab findings: Abnormal Labs 01/26/21 01/26/21 01/26/21 18:12 19:37 19:37 Hgb 15.8 H Hct 47.0 H Lymphocytes % (Manual) 37.0 H Monocytes % (Manual) 15.0 H Monocytes # (Manual) 1.1 H Sodium 119 L* Potassium Chloride 71.1 L Carbon Dioxide 15 L BUN 25 H Creatinine 1.4 H Glucose 735 H* POC Glucose > 600 H Hemoglobin A1c Calcium 10.6 H Phosphorus Total Protein 8.3 H Urine WBC (Auto) 01/26/21 01/26/21 01/26/21 21:22 21:49 23:32 Hgb Hct Lymphocytes % (Manual) Monocytes % (Manual) Monocytes # (Manual) Sodium 120 L Potassium 5.1 H Chloride 72.8 L Carbon Dioxide 14 L BUN 24 H Creatinine 1.4 H Glucose 748 H* POC Glucose 585 H Hemoglobin A1c 17.0 H Calcium Phosphorus 4.90 H Total Protein Urine WBC (Auto) 01/26/21 01/27/21 01/27/21 Unknown 00:18 03:40 Hgb Hct Lymphocytes % (Manual) Monocytes % (Manual) Monocytes # (Manual) Sodium 130 L D Potassium Chloride 85.9 L Carbon Dioxide 21 L D BUN 21 H Creatinine Glucose 452 H POC Glucose 161 H Hemoglobin A1c Calcium Phosphorus Total Protein Urine WBC (Auto) > 182.0 H 01/27/21 01/27/21 01/27/21 04:50 04:57 05:49 Hgb Hct Lymphocytes % (Manual) Monocytes % (Manual) Monocytes # (Manual) Sodium 135 L Potassium 3.2 L Chloride 93.0 L Carbon Dioxide BUN 19 H Creatinine Glucose 135 H POC Glucose 150 H 163 H Hemoglobin A1c Calcium Phosphorus Total Protein Urine WBC (Auto) 01/27/21 01/27/21 01/27/21 06:58 07:39 09:08 Hgb Hct Lymphocytes % (Manual) Monocytes % (Manual) Monocytes # (Manual) Sodium Potassium Chloride Carbon Dioxide BUN Creatinine Glucose POC Glucose 224 H 188 H 193 H Hemoglobin A1c Calcium Phosphorus Total Protein Urine WBC (Auto) 01/27/21 01/27/21 01/27/21 10:08 10:55 11:51 Hgb Hct Lymphocytes % (Manual) Monocytes % (Manual) Monocytes # (Manual) Sodium Potassium Chloride Carbon Dioxide BUN Creatinine Glucose POC Glucose 167 H 151 H 172 H Hemoglobin A1c Calcium Phosphorus Total Protein Urine WBC (Auto) 01/27/21 01/27/21 01/27/21 13:19 14:26 15:03 Hgb Hct Lymphocytes % (Manual) Monocytes % (Manual) Monocytes # (Manual) Sodium Potassium Chloride Carbon Dioxide BUN Creatinine Glucose POC Glucose 191 H 187 H 153 H Hemoglobin A1c Calcium Phosphorus Total Protein Urine WBC (Auto) 01/27/21 01/27/21 01/27/21 15:12 15:13 16:05 Hgb Hct Lymphocytes % (Manual) Monocytes % (Manual) Monocytes # (Manual) Sodium 135 L Potassium Chloride 94.5 L Carbon Dioxide BUN Creatinine Glucose 144 H POC Glucose 142 H 147 H Hemoglobin A1c Calcium Phosphorus Total Protein Urine WBC (Auto) 01/27/21 01/27/21 01/28/21 21:09 21:16 04:33 Hgb Hct Lymphocytes % (Manual) Monocytes % (Manual) Monocytes # (Manual) Sodium 133 L 132 L Potassium Chloride 96.1 L Carbon Dioxide 17 L 21 L BUN Creatinine Glucose 386 H 342 H POC Glucose 383 H Hemoglobin A1c Calcium Phosphorus Total Protein Urine WBC (Auto) 01/28/21 01/28/21 07:18 12:13 Hgb Hct Lymphocytes % (Manual) Monocytes % (Manual) Monocytes # (Manual) Sodium Potassium Chloride Carbon Dioxide BUN Creatinine Glucose POC Glucose 373 H 460 H Hemoglobin A1c Calcium Phosphorus Total Protein Urine WBC (Auto)
--- NOTE | 2021-01-28 15:45 | Progress Note ---
Assessment and Plan DKA -Patient was admitted to ICU with DKA protocol -Discontinued insulin drip once anion gap is closed - on consistent carb diet, sliding scale insulin and long-acting insulin -Continue to adjust insulin dose as needed for better blood glycemic control hyponatremia, due to hyperglycemia, improved continue IV fluid Hyperkalemia, resolved, Hypokalemia, replete as needed ADAMS due to vasomotor nephropathy -Resolved with IV fluid diabetes mellitus type 2 uncontrolled, need to consult -A1c 17.0, provide diabetic education, SSI long-acting insulin and consistent carb diet UTI, POA -Placed on IV fluid and antibiotics -Follow culture DVT prophylaxis, Lovenox Brief history: 60-year-old -[place] female with known history of hypertension presented to the emergency room for evaluation of elevated blood glucose, excessive thirst and also excessive urination lately. Work-up in the emergency room revealed UTI, elevated blood glucose in the 700s and elevated anion gap. Patient subsequently started on insulin drip and admitted to the intensive care unit for new onset diabetes mellitus, UTI and DKA.. 01/27/21; continue IV fluid, IV antibiotics. Stop insulin drip transition to subcu insulin. A1c 17.0. Start on consistent carb diet. Transfer to telemetry. Discussed plan of care at the bedside with patient and with her . 01/28/21: Continue to adjust subcu insulin dose as fasting blood glucose still above 300s. Continue Accu-Chek QA CHS. Diabetic education. Possible DC tomorrow blood glucose stabilizes. Subjective Date of service: 01/28/21 Interval history: Patient seen and examined. Medical records and medication list reviewed. No acute event overnight noted by the RN. Patient denies any chest pain or difficulty breathing. Blood glucose above 300s this morning Patient tolerating diet, no complaints of nausea vomiting or abdominal pain Discussed plan of care at bedside with patient. Objective - Exam Narrative Exam: GENERAL: well-developed and well-nourished female lying on bed appeared to be in no discomfort. HEENT: Normocephalic. Atraumatic. No conjunctival congestion or icterus. Patient has moist mucous membranes. NECK: Supple. Trachea midline. CHEST/LUNGS: Clear to auscultated bilaterally, breathing nonlabored. No wheezes crackles or rhonchi. HEART/CARDIOVASCULAR: Regular in rate and rhythm. S1 and S2 positive. ABDOMEN: Abdomen is soft, nontender. Patient has normal bowel sounds. SKIN: There is no rash. Warm and dry. NEURO: No focal motor deficit. Follows command. MUSCULOSKELETAL: No joint effusion or tenderness. EXTRIMITY: No edema, no cyanosis or clubbing. PSYCH: Cooperative. - Constitutional Vitals: Vital Signs - 12hr 01/28/21 01/28/21 01/28/21 04:00 07:19 08:46 Temperature 98.0 F Pulse Rate 92 H 87 92 H Respiratory 18 Rate Blood Pressure 145/66 O2 Sat by Pulse 100 Oximetry 01/28/21 12:09 Temperature Pulse Rate 92 H Respiratory Rate Blood Pressure O2 Sat by Pulse Oximetry - Labs CBC & Chem 7: 01/26/21 19:37 01/28/21 04:33 Labs: Abnormal lab results 01/27/21 01/27/21 01/27/21 Range/Units 15:13 16:05 21:09 Sodium 135 L (137-145) mmol/L Chloride 94.5 L (98-107) mmol/L Carbon Dioxide (22-30) mmol/L Glucose 144 H (65-100) mg/dL POC Glucose 147 H 383 H (70-105) mg/dL 01/27/21 01/28/21 01/28/21 Range/Units 21:16 04:33 07:18 Sodium 133 L 132 L (137-145) mmol/L Chloride 96.1 L (98-107) mmol/L Carbon Dioxide 17 L 21 L (22-30) mmol/L Glucose 386 H 342 H (65-100) mg/dL POC Glucose 373 H (70-105) mg/dL 01/28/21 Range/Units 12:13 Sodium (137-145) mmol/L Chloride (98-107) mmol/L Carbon Dioxide (22-30) mmol/L Glucose (65-100) mg/dL POC Glucose 460 H (70-105) mg/dL
[2021-01-28] MEDS ORDERED: INSULIN NPH, HUMAN 100 UNIT/1 ML SUB-Q SCH (17:00)
[2021-01-28] MEDS ORDERED: INSULIN GLARGINE 100 UNITS/ML SUB-Q ONE (17:00)
[2021-01-28] MEDS: FAMOTIDINE 20 MG TAB PO SCH (21:20)
[2021-01-29] MEDS: HEPARIN 5,000 UNIT/1 ML VIAL SUB-Q SCH ×2 (05:36→15:00)
[2021-01-29] MEDS: cefTRIAXone/NS 1 GM/50 ML 1 GM/50 ML BAG IV SCH (10:54)
[2021-01-29] MEDS: INSULIN REGULAR, HUMAN 100 UNITS/1 ML SUB-Q SCH ×3 (11:10→17:07)
[2021-01-29] MEDS: INSULIN NPH, HUMAN 100 UNIT/1 ML SUB-Q SCH ×3 (11:34→17:07)
--- NOTE | 2021-01-29 13:26 | Progress Note ---
Assessment and Plan New onset diabetes Diabetic ketoacidosis Hypertension Urinary tract infection Severe metabolic acidosis Pseudohyponatremia Acute kidney injury - prn supplemental oxygen to keep O2 sats > 90% - prn bronchodilators (CARLOS) with pulm hygiene per RT - continue to avoid nephrotoxins, renally dose all medications - continue mobility protocols to prevent pressure ulcers - PT/OT as tolerated - Wound care per RN/WCT - continue accuchecks with glycemic control per SSI for target blood glucose < 180 mg/dL - tobacco abstinence strongly counseled at the bedside - home oxygen evaluation at discharge - GI & VTE prophylaxis - Flu & pneumovax per protocol - Pulmonary out patient follow up for PFTs and optimization of respiratory status - prn analgesia per pain score - continue other care per attending / other consultants ... re-evaluate in am & prn Subjective Date of service: 01/29/21 Principal diagnosis: New onset DM; DKA; HTN; UTI; Severe metabolic acidosis; ADAMS Interval history: Patient is seen today for: New onset DM; DKA; Hypertension; UTI; Severe metabolic acidosis; ADAMS Seen and examined at bedside; 24hour events reviewed; nursing and respiratory care staff consulted; no adverse overnight events reported to me; resting peacefully in bed; Objective Vital Signs - 12hr 01/29/21 01/29/21 01/29/21 02:57 03:19 07:51 Temperature 98.9 F 98.4 F Pulse Rate 73 79 83 Respiratory 18 18 Rate Blood Pressure 141/75 169/77 O2 Sat by Pulse 98 98 Oximetry 01/29/21 11:14 Temperature 97.9 F Pulse Rate 83 Respiratory 18 Rate Blood Pressure 178/91 O2 Sat by Pulse 100 Oximetry Constitutional: no acute distress, alert Eyes: non-icteric ENT: oropharynx moist Neck: supple, no lymphadenopathy Effort: normal Ascultation: Bilateral: clear Cardiovascular: regular rate and rhythm Gastrointestinal: normoactive bowel sounds, soft Integumentary: normal Extremities: no cyanosis, no edema Neurologic: normal mental status, non-focal exam, pupils equal and round, CN II- XII normal Psychiatric: mood appropriate CBC and BMP: 01/26/21 19:37 01/28/21 04:33 Abnormal lab findings: Abnormal Labs 01/26/21 01/26/21 01/26/21 18:12 19:37 19:37 Hgb 15.8 H Hct 47.0 H Lymphocytes % (Manual) 37.0 H Monocytes % (Manual) 15.0 H Monocytes # (Manual) 1.1 H Sodium 119 L* Potassium Chloride 71.1 L Carbon Dioxide 15 L BUN 25 H Creatinine 1.4 H Glucose 735 H* POC Glucose > 600 H Hemoglobin A1c Calcium 10.6 H Phosphorus Total Protein 8.3 H Urine WBC (Auto) 01/26/21 01/26/21 01/26/21 21:22 21:49 23:32 Hgb Hct Lymphocytes % (Manual) Monocytes % (Manual) Monocytes # (Manual) Sodium 120 L Potassium 5.1 H Chloride 72.8 L Carbon Dioxide 14 L BUN 24 H Creatinine 1.4 H Glucose 748 H* POC Glucose 585 H Hemoglobin A1c 17.0 H Calcium Phosphorus 4.90 H Total Protein Urine WBC (Auto) 01/26/21 01/27/21 01/27/21 Unknown 00:18 03:40 Hgb Hct Lymphocytes % (Manual) Monocytes % (Manual) Monocytes # (Manual) Sodium 130 L D Potassium Chloride 85.9 L Carbon Dioxide 21 L D BUN 21 H Creatinine Glucose 452 H POC Glucose 161 H Hemoglobin A1c Calcium Phosphorus Total Protein Urine WBC (Auto) > 182.0 H 01/27/21 01/27/21 01/27/21 04:50 04:57 05:49 Hgb Hct Lymphocytes % (Manual) Monocytes % (Manual) Monocytes # (Manual) Sodium 135 L Potassium 3.2 L Chloride 93.0 L Carbon Dioxide BUN 19 H Creatinine Glucose 135 H POC Glucose 150 H 163 H Hemoglobin A1c Calcium Phosphorus Total Protein Urine WBC (Auto) 01/27/21 01/27/21 01/27/21 06:58 07:39 09:08 Hgb Hct Lymphocytes % (Manual) Monocytes % (Manual) Monocytes # (Manual) Sodium Potassium Chloride Carbon Dioxide BUN Creatinine Glucose POC Glucose 224 H 188 H 193 H Hemoglobin A1c Calcium Phosphorus Total Protein Urine WBC (Auto) 01/27/21 01/27/21 01/27/21 10:08 10:55 11:51 Hgb Hct Lymphocytes % (Manual) Monocytes % (Manual) Monocytes # (Manual) Sodium Potassium Chloride Carbon Dioxide BUN Creatinine Glucose POC Glucose 167 H 151 H 172 H Hemoglobin A1c Calcium Phosphorus Total Protein Urine WBC (Auto) 01/27/21 01/27/21 01/27/21 13:19 14:26 15:03 Hgb Hct Lymphocytes % (Manual) Monocytes % (Manual) Monocytes # (Manual) Sodium Potassium Chloride Carbon Dioxide BUN Creatinine Glucose POC Glucose 191 H 187 H 153 H Hemoglobin A1c Calcium Phosphorus Total Protein Urine WBC (Auto) 01/27/21 01/27/21 01/27/21 15:12 15:13 16:05 Hgb Hct Lymphocytes % (Manual) Monocytes % (Manual) Monocytes # (Manual) Sodium 135 L Potassium Chloride 94.5 L Carbon Dioxide BUN Creatinine Glucose 144 H POC Glucose 142 H 147 H Hemoglobin A1c Calcium Phosphorus Total Protein Urine WBC (Auto) 01/27/21 01/27/21 01/28/21 21:09 21:16 04:33 Hgb Hct Lymphocytes % (Manual) Monocytes % (Manual) Monocytes # (Manual) Sodium 133 L 132 L Potassium Chloride 96.1 L Carbon Dioxide 17 L 21 L BUN Creatinine Glucose 386 H 342 H POC Glucose 383 H Hemoglobin A1c Calcium Phosphorus Total Protein Urine WBC (Auto) 01/28/21 01/28/21 01/28/21 07:18 12:13 17:11 Hgb Hct Lymphocytes % (Manual) Monocytes % (Manual) Monocytes # (Manual) Sodium Potassium Chloride Carbon Dioxide BUN Creatinine Glucose POC Glucose 373 H 460 H 275 H Hemoglobin A1c Calcium Phosphorus Total Protein Urine WBC (Auto) 01/28/21 01/29/21 01/29/21 21:06 07:48 11:20 Hgb Hct Lymphocytes % (Manual) Monocytes % (Manual) Monocytes # (Manual) Sodium Potassium Chloride Carbon Dioxide BUN Creatinine Glucose POC Glucose 339 H 201 H 328 H Hemoglobin A1c Calcium Phosphorus Total Protein Urine WBC (Auto)
--- NOTE | 2021-01-29 14:25 | Discharge Summary ---
Providers - Providers Date of Admission: 01/26/21 21:53 Date of discharge: 01/29/21 Attending physician: SUKHDEEP WANG 01/26/21 22:22 Consult to Dietitian/Nutrition [CONS] Routine Physician Instructions: Reason For Exam: Reason for Consult: Diet education Consult to Physician [CONS] Routine Comment: Consulting Provider: ADI HALL Physician Instructions: Reason For Exam: DKA - on insulin drip Primary care physician: [employer] Hospitalization Condition: Stable Hospital course: 60-year-old -[place] female with known history of hypertension presented to the emergency room for evaluation of elevated blood glucose, excessive thirst and also excessive urination lately. Work-up in the emergency room revealed UTI, elevated blood glucose in the 700s and elevated anion gap. Patient subsequently started on insulin drip and admitted to the intensive care unit for new onset diabetes mellitus, UTI and DKA.. Patient was weaned off from insulin drip as BG improved and anion gap closed. Patient was continued on iv fluid, consistent carb diet, Placed on Long-acting insulin and SSI. Adjusted long acting insulin dose to better improve BG level, counselled for dietary and insulin regimen compliance. Patient was then discharged home in stable condition with outpt f/u. Daily clinical course: 01/27/21; continue IV fluid, IV antibiotics. Stop insulin drip transition to subcu insulin. A1c 17.0. Start on consistent carb diet. Transfer to telemetry. Discussed plan of care at the bedside with patient and with her . 01/28/21: Continue to adjust subcu insulin dose as fasting blood glucose still above 300s. Continue Accu-Chek QA CHS. Diabetic education. Possible DC tomorrow blood glucose stabilizes. 01/29/21: Further increase insulin dose today for better adjustment of blood glucose. Diabetic education provided. Patient will follow up with her primary care physician in 1 week. Patient was advised to keep a blood glucose diary. Discharge planning management was thoroughly discussed with the patient and she verbalized understanding. Patient will complete total 7 days of antibiotics for UTI. Disposition: [id number] HOME UNDER HOME [facility] Final Discharge Diagnosis (Prints w/discharge instructions): Diabetic ketoacidosis. Hyponatremia. Hyperkalemia. Hypokalemia. New onset diabetes mellitus type 2. UTI Time spent for discharge: 34 minutes Core Measure Documentation - Palliative Care Palliative Care/ Comfort Measures: Not Applicable - Core Measures Any of the following diagnoses?: none Exam - Physical Exam Narrative exam: GENERAL: well-developed and well-nourished female lying on bed appeared to be in no discomfort. HEENT: Normocephalic. Atraumatic. No conjunctival congestion or icterus. Patient has moist mucous membranes. NECK: Supple. Trachea midline. CHEST/LUNGS: Clear to auscultated bilaterally, breathing nonlabored. No wheezes crackles or rhonchi. HEART/CARDIOVASCULAR: Regular in rate and rhythm. S1 and S2 positive. ABDOMEN: Abdomen is soft, nontender. Patient has normal bowel sounds. SKIN: There is no rash. Warm and dry. NEURO: No focal motor deficit. Follows command. MUSCULOSKELETAL: No joint effusion or tenderness. EXTRIMITY: No edema, no cyanosis or clubbing. PSYCH: Cooperative. - Constitutional Vitals: Temp Pulse Resp BP Pulse Ox 97.9 F 83 18 178/91 100 01/29/21 11:14 01/29/21 11:14 01/29/21 11:14 01/29/21 11:14 01/29/21 11:14 Plan Activity: advance as tolerated Weight Bearing Status: Weight Bear as Tolerated Diet: diabetic Special Instructions: home health RN (For diabetic management) Additional Instructions: Please continue insulin 70/30 25 unit before breakfast and before dinner. Also continue sliding scale of insulin according to following protocol: BG 150-199: Apply 2 units. BG 200-249: apply 4 units. BG 250 -299: apply 6 units. BG >300 apply 8 units, >350 x2 call PCP Follow up with: LEIDA QUAN MD [Primary Care Provider] - 3-5 Days KENJI PARHAM MD [Staff Physician] - 7 Days Prescriptions: amLODIPine 10 mg PO QDAY #30 tablet Gabapentin 100 mg PO Q8HR #30 capsule Insulin Regular, Human [HumuLIN R] 0 units SUB-Q ACHS 30 Days Insulin NPH, Human [NovoLIN N] 25 unit SUB-Q BIDDIAB 30 Days lisinopriL [Zestril TAB] 10 mg PO QDAY #30 tablet Other Discharge Orders: Glucometer (Amb) Location: None Selected Glucometer supplies[Amb] Location: None Selected
[2021-01-29] MEDS ORDERED: LISINOPRIL 10 MG TAB PO SCH (15:00)
[2021-01-29] MEDS ORDERED: amLODIPine 10 MG TAB PO SCH (15:00)
[2021-01-29] MEDS ORDERED: GABAPENTIN 100 MG CAP PO SCH (16:00)
[2021-01-29 16:13] LABS: Blood Urea Nitrogen 8 mg/dL (7-17); Calcium 9.3 mg/dL (8.4-10.2); Hemolysis Index 12
[2021-01-29 16:19] VITALS: BP 187/96
[2021-01-29 16:20] LABS: BUN/Creatinine Ratio 11
== END 2021-01-29 17:15 | disposition home health service (06) | DRG 637 ==
LOC: ED 17:54 → CC1 21:53 → 4A 01-27 18:35
PROVIDERS: ADMIT Internal Medicine Geriatric Medicine; ATTEND Internal Medicine
DX: E11.10 Type 2 diabetes mellitus with ketoacidosis without coma (principal); N17.0 Acute kidney failure with tubular necrosis; N39.0 Urinary tract infection, site not specified; E87.1 Hypo-osmolality and hyponatremia; E87.5 Hyperkalemia; E87.6 Hypokalemia; I10 Essential (primary) hypertension; F10.10 Alcohol abuse, uncomplicated; Z83.3 Family history of diabetes mellitus; Z79.899 Other long term (current) drug therapy
CPT/HCPCS: 36415; 80048; 80053; 81001; 82962; 83036; 83735; 84100; 85007; 85025; 87040; 87076; 87086; 87186; 96365; 96375; G0378; J0696; J1644; J1815; J7030